=== PATIENT | female | born 1945 | race Caucasian/White ===

== ENCOUNTER → 2016-10-14 | Outpatient (CLI) | payer MEDICARE, BC ==
[~2016-10-14] MED LIST: DIOVAN80 MG PO
== END | disposition short-term general hospital (02) ==
LOC: CLVASC 12:36
DX: I65.23 Occlusion and stenosis of bilateral carotid arteries (principal)

== ENCOUNTER 2016-12-05 08:14 | Day surgery (SDC) | payer MEDICARE, BC ==
[~2016-12-05] VITALS: Ht 162.6 cm; Wt 109.8 kg
== END 2016-12-05 10:43 | disposition short-term general hospital (02) ==
LOC: SURGOP 08:14
PROC: 0DBH8ZZ Excision of Cecum, Via Natural or Artificial Opening Endoscopic (ICD-10-PCS; principal; 2016-12-05)
PROC: 0DBE8ZZ Excision of Large Intestine, Via Natural or Artificial Opening Endoscopic (ICD-10-PCS; 2016-12-05)
DX: Z12.11 Encounter for screening for malignant neoplasm of colon (principal); D12.0 Benign neoplasm of cecum; D12.6 Benign neoplasm of colon, unspecified; K57.30 Diverticulosis of large intestine without perforation or abscess without bleeding; I10 Essential (primary) hypertension; I65.29 Occlusion and stenosis of unspecified carotid artery; J45.909 Unspecified asthma, uncomplicated; E66.9 Obesity, unspecified; M19.90 Unspecified osteoarthritis, unspecified site; Z68.41 Body mass index [BMI] 40.0-44.9, adult; Z86.73 Personal history of transient ischemic attack (TIA), and cerebral infarction without residual deficits; Z88.1 Allergy status to other antibiotic agents; Z79.82 Long term (current) use of aspirin; Z79.899 Other long term (current) drug therapy; Z90.49 Acquired absence of other specified parts of digestive tract; Z90.710 Acquired absence of both cervix and uterus; Z90.89 Acquired absence of other organs; Z96.653 Presence of artificial knee joint, bilateral; Z98.890 Other specified postprocedural states